=== PATIENT | male | born 1940 | race Caucasian/White ===

== ENCOUNTER 2017-06-24 14:45 | Inpatient (IN) | payer MEDICARE, OTHER ==
[~2017-06-24] VITALS: Ht 167.6 cm; Wt 98.2 kg
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
--- NOTE | ~2017-06-24 | PR ---
[place], [place] PROGRESS NOTE [id number] #: [id number] ROOM: 316 DOCTOR: NATALY LEHMAN BIRTHDATE: [birth year] DOS: 06/27/2017 SUMMARY OF VISIT: Good morning, the patient was assessed in the dining room where he was in a Elsa chair. He engaged in minimal conversation, but was very pleasant. No voiced complaints from nursing. No issues per patient. It should be noted that he seems more alert and engaging as his white count is coming down. MENTAL STATUS: He is alert and oriented to person. Maybe place, I do not think time. Some memory deficits noted. Affect is flat, blunted in the constricted range. No overt signs of auditory or visual hallucinations. No delusions or paranoia. Good sleep, good appetite. No behaviors. PLAN: The patient seems to be tolerating the addition of the Depakote. We will continue to give the Depakote and keep the medications as is. Again, his white count is coming down and he seems to be clearing, so this may be a contributing factor. As he continues to improve start pulling back on the Depakote if need be. Right now, he is getting good sleep from it and there are no behaviors, so we will continue with this for now and plan to discharge once stable enough. MATT LEHMAN CNP CM:PNTRANS [id number] NATALY LEHMAN 06/27/17 2003 interface
--- NOTE | ~2017-06-24 | PR ---
[place], [place] [facility]GRESS [id number] #: [id number] ROOM: 316 DOCTOR: NATALY LEHMAN BIRTHDATE: [birth year] DOS: 06/26/2017 SUMMARY OF VISIT: The patient was assessed in the dining room. He engaged in minimal conversation. Overall, stating that he is feeling fairly good. MENTAL STATUS: He is alert and oriented really to self only. He has clearly got some short term memory deficits. Affect is a little bit flat. No overt signs of auditory or visual hallucinations. No delusions, no paranoia. Stated that he slept good last night and the appetite is fairly good. PLAN: I am going to continue with the Celexa see how he does. Right now, the patient is started on Depakote. He seems to be tolerating this. I want to see how he does over the next 24 hours. He does have an elevated white count that is coming down, so there may be an infectious process going on. Let see how he acclimates over the next 24 hours to the medication changes that we have done and we can go from there. MATT LEHMAN CNP CM:YUNIOR [id number] [phone] NATALY LEHMAN 06/26/172251 interface
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
--- NOTE | ~2017-06-24 | CON ---
[place], [place] REPORT OF CONSULTATION [facility]: [id number] #: [id number] ROOM: 316 DOCTOR: MADYSON REAGAN ED.D (DIEGO) BIRTHDATE: [birth year] DOS: 06/30/2017 HISTORY OF PRESENT ILLNESS: The patient is a 76-year-old male who is presently a patient on the Senior Behavioral Health Unit at [facility]. He was brought to the hospital from [facility] [place], [place]. This patient's medical history is pertinent for atrial fibrillation, benign prostatic hypertrophy, hypertension, major depression, brief psychotic disorder and major neurocognitive disorder - Alzheimer's disease. His medications include Celexa, Depakote, Aricept and Namenda. This patient was awake, alert and oriented to person only. He was not oriented to place or time. He stated he is 44 or 45 years old and it is 1997 or 1998. He stated he was at [facility] in [place], [place]. His short and his long-term memory are markedly impaired. In my opinion, this patient is clearly not competent to make informed healthcare decisions. Apparently, his is undergoing brain surgery for some type of cancer and she is his durable power of manager inventory control for healthcare. There was some concern about this and a request was made for guardianship. He is clearly not competent, so I did complete guardianship paperwork and hopefully, his will be able to make decisions, but in the event if that does not occur, guardianship papers will be completed. DIAGNOSES: 1. Major neurocognitive disorder - Alzheimer's disease. 2. Major depressive disorder, recurrent. RECOMMENDATIONS: In my opinion, this patient is clearly not competent to make informed healthcare decisions. Thank you very much for this consult. MADYSON REAGAN ED.D CM:CONSTR:REPORT OF CONSULTATION 1153 06/30/17 1211 interface TEZ HAYES MD
[2017-06-24] MEDS ORDERED: Depakote Sprin125 MG PO (14:56)
[2017-06-24] MEDS ORDERED: NAMZARIC 28 MG1 EACH PO (14:57)
[2017-06-24] MEDS ORDERED: ASPIRIN CHEWABL81 M1 PO (14:57)
[2017-06-24] MEDS ORDERED: ATIVAN0.5 MG PO (14:57)
[2017-06-24] MEDS ORDERED: REMERON15 M2 PO (14:58)
[2017-06-24] MEDS ORDERED: SEROQUEL25 MG PO (14:58)
[2017-06-24] MEDS ORDERED: SENOKOT-S TABL1 EACH PO (14:59)
[2017-06-24] MEDS ORDERED: VITAMIN D350000 UNIT PO (15:02)
[2017-06-24] MEDS ORDERED: TRAMADOL HCL50 MG PO (15:03)
[2017-06-24] MEDS ORDERED: LOPRESSOR50 M1 PO (15:06)
[2017-06-24] MEDS ORDERED: DUONEB 3 MG/3 ML3 M1 INH (15:07)
--- NOTE | 2017-06-24 17:45 | NUR ---
TI FINCH a 76 year old M admitted via ambulance from the OTHER as a voluntary admission. Arrived on unit at 1745. ALLERGIES: NKA. Vital signs are: 98.9-105-18 143/74. VERBAL CONSENT GIVEN VIA TELEPHONE FOR ADMISSION PAPERWORK FROM PAIGE [facility]ILA. Admitted under the services of Dr. FREDDY ARGUETA,[facility]. A search was conducted and hazardous articles were removed. Client was oriented to the unit. VADIM FARIAS
[2017-06-24 18:12] VITALS: BP 143/74
--- NOTE | 2017-06-24 18:31 | NUR ---
MADE AWARE OF NEW CONSULT AND THAT MEDICATIONS WERE READY TO BE RECONCILED.
--- NOTE | 2017-06-24 19:01 | NUR ---
DR. BEY ON UNIT TO SEE PATIENT
[2017-06-24 20:28] VITALS: BP 155/68
--- NOTE | 2017-06-24 21:30 | NUR ---
CLIENT SITTING IN GERICHAIR AT THIS TIME WATHCHING TELEVISION. MEDICATION COMPLIANT. VOICES NO DISCOMFORT OR PAIN AT THIS TIME
--- NOTE | 2017-06-25 00:05 | NUR ---
RESPIRATORY THERAPY ON UNIT TO ADMINISTER BREATHING TREATMENT TO CLIENT
--- NOTE | 2017-06-25 03:46 | NUR ---
24 HR chart check completed.
[2017-06-25 06:28] LABS: BASO % 0.1 % (0.0-1.0); EOS % 0.1 % (1.0-4.0); HEMATOCRIT 43.6 % (42.0-52.0); HEMOGLOBIN 14.3 g/dl (14.0-18.0); LYMPH # 2.8 10*3/uL (1.3-4.4); LYMPH % 14.5 % (27.0-41.0); MEAN CELL VOLUME 94.4 fl (80.0-94.0); MEAN CORPUSCULAR HGB CONC 32.8 g/dl (33.0-37.0); MEAN PLATELET VOLUME 10.5 fl (9.6-12.3); MONO # 1.5 10*3/uL (0.1-1.0); MONO % 7.7 % (3.0-9.0); NEUT # 14.9 10*3/uL (2.3-7.9); NEUT % 77.1 % (47.0-73.0); PLATELET COUNT AUTOMATED 375 10*3/uL (130-400); RED BLOOD COUNT 4.62 10*6/uL (4.50-5.90); RED CELL DISTRI WIDTH 11.9 % (0-14.5); WHITE BLOOD COUNT 19.3 10*3/uL (4.8-10.8)
--- NOTE | 2017-06-25 06:44 | NUR ---
CLIENT SLEEPING GREATER THAN 7 HOUR5 THIS SHIFT
[2017-06-25 06:59] LABS: ALBUMIN 2.8 gm/dl (3.1-4.5); ALKALINE PHOSPHATASE 100 U/L (45-117); BUN 16 mg/dl (7-24); CHLORIDE 105 mmol/L (98-107); CHOLESTEROL 103 mg/dL (<200); CREATININE 0.62 mg/dL (0.70-1.30); HDL CHOLESTEROL 35 mg/dl (40-60); LDL CHOLESTEROL 57 mg/dL (9-159); POTASSIUM 3.6 mmol/L (3.5-5.1); SGOT/AST 16 IU/L (3-35); SGPT/ALT 20 U/L (12-78); SODIUM 140 mmol/L (136-145); TOTAL PROTEIN 6.9 gm/dL (6.4-8.2); TRIGLYCERIDES 53 mg/dl (<150); VALPROIC ACID (DEPAKENE) 49.6 ug/ml (50-100); VLDL CHOLESTEROL 11 mg/dL (6-40)
[2017-06-25 07:06] LABS: VITAMIN D, 25-HYDROXY 30.3 ng/mL (30-100)
[2017-06-25 07:50] VITALS: BP 119/68
--- NOTE | 2017-06-25 12:32 | NUR ---
PT was in attendence for RT Group/Games but was asleep in his chair
--- NOTE | 2017-06-25 13:28 | NUR ---
PHYSICAL THERAPY PAtient evaluated on 3, full evaluation to follow. Continue with PT as per plan of care with fall, unit three, dementia and alarm precautions. Return to [facility] as prior with PT prn to return to [facility]. PAtient is moderate coplexity via chart review, tests and evaluation: 35040. Thank you for this referral. Katy Barrett,PT
--- NOTE | 2017-06-25 14:10 | NUR ---
Occupational Therapy evaluation completed this date on 3 with full eval to follow. Precautions include 3N, fall precautions,personal alarm, dementia, moderate complexity level 19003. Recommend OT per POC and return to [facility]. Thank you for this referral. Jordyn Mora OTR/l
[2017-06-25 14:31] LABS: BILIRUBIN NEGATIVE (NEGATIVE); BLOOD TRACE-INTACT (NEGATIVE); CLARITY SL CLOUDY (CLEAR); COLOR YELLOW (YELLOW); GLUCOSE NEGATIVE (NEGATIVE); KETONE NEGATIVE (NEGATIVE); LEUKO ESTERASE NEGATIVE (NEGATIVE); NITRITE NEGATIVE (NEGATIVE); SPECIFIC GRAVITY 1.025 (1.005-1.030); UROBILINOGEN 0.2 E.U./dl (0.2-1.0)
[2017-06-25 14:44] LABS: BACTERIA TRACE; MUCOUS 3+
--- NOTE | 2017-06-25 15:05 | NUR ---
[place] is compliant with prescribed medications. He was noted to exhibit some agitation @ times during the morning and did grab staff when attempts were made to assist him with ADL's. Marked cognitive impairment is noted and he is unable to process information provided by staff. Oriented to person only. Dr. Dumont and Dr. Houser in to see him this morning and request was made for staff to straight cath him to obtain a urine for testing as he has been incontinent since admission to the unit. Specimen obtained and sent to lab. He was medicated with ativan 1 mg po @ 1241 for irritability with agitation. Ativan is effective in calming him. Requires maximal assistance and direction with completing ADL's. Appetite is good. Refer to [facility] flowsheet for specific monitoring.
--- NOTE | 2017-06-25 15:41 | NUR ---
PT did not attend RT Group/Painting this afternoon. PT was in his room sleeping
--- NOTE | 2017-06-25 17:36 | NUR ---
treatment team was held this morning withthe following present: Dr. Jimenez, medical student, [employer], RN, SWs, and AT. Dr. jimenez said that Pt may go medial. From . [facility] pending discharge for next week if does not go medical
--- NOTE | 2017-06-26 02:32 | NUR ---
24 HR chart check completed.
[2017-06-26 04:46] LABS: BASO % 0.1 % (0.0-1.0); EOS # 0.1 10*3/uL (0.0-0.4); EOS % 0.3 % (1.0-4.0); HEMATOCRIT 42.1 % (42.0-52.0); HEMOGLOBIN 13.8 g/dl (14.0-18.0); LYMPH # 2.9 10*3/uL (1.3-4.4); LYMPH % 19.1 % (27.0-41.0); MEAN CELL VOLUME 94.8 fl (80.0-94.0); MEAN CORPUSCULAR HGB 31.1 pg (27.0-31.0); MEAN CORPUSCULAR HGB CONC 32.8 g/dl (33.0-37.0); MEAN PLATELET VOLUME 10.4 fl (9.6-12.3); MONO # 1.3 10*3/uL (0.1-1.0); MONO % 8.7 % (3.0-9.0); NEUT # 10.9 10*3/uL (2.3-7.9); NEUT % 71.1 % (47.0-73.0); PLATELET COUNT AUTOMATED 370 10*3/uL (130-400); RED BLOOD COUNT 4.44 10*6/uL (4.50-5.90); RED CELL DISTRI WIDTH 11.9 % (0-14.5); WHITE BLOOD COUNT 15.4 10*3/uL (4.8-10.8)
[2017-06-26 05:04] LABS: ALBUMIN 2.8 gm/dl (3.1-4.5); ALKALINE PHOSPHATASE 93 U/L (45-117); BUN 17 mg/dl (7-24); CHLORIDE 106 mmol/L (98-107); POTASSIUM 3.8 mmol/L (3.5-5.1); SGOT/AST 12 IU/L (3-35); SGPT/ALT 17 U/L (12-78); SODIUM 142 mmol/L (136-145); TOTAL PROTEIN 6.8 gm/dL (6.4-8.2)
--- NOTE | 2017-06-26 05:15 | NUR ---
B: AGITATION/ ANXIETY. PT RESTLESS, DIFFICULT TO REDIRECT AT TIMES I: 1-1, DISTRACTION, REDIRECTION R: PT RESTING QUIETLY IN BED COOPERATIVE WITH HS CARE WITH COAXING P: CONTINUE TO MONITOR FOR MOOD LABILITY AND AGITATION REDIRECT NECESSARY AMINISTER MEDS ORDERED
--- NOTE | 2017-06-26 05:29 | NUR ---
PT MED COMPLIANT WITH OUT DIFFICULTY, COOPERATIVE WITH HS CARE. INCONTINENT OF URINE, CONTINENT OF LARGE FORMED BM. SLEPT THROUGHOUT NIGHT WITH NO INTURRUPTIONS >8 HOURS. NO S/S OF AGGRESSION OR AGITATION THIS SHIFT. SEE FLOW SHEET FOR SPECIFIC MONITORING.
[2017-06-26 07:34] VITALS: BP 120/81
--- NOTE | 2017-06-26 08:06 | NUR ---
PHYSICAL THERAPY Mr Harden seen this AM 1:1 for her physical therapy session. Pt having dementia and body alarm precautions. Transfer supine/sit MOD/MAX A X 1, sitting balance MIN A X 1, X 5 min. Sit/stand with verbal cueing and MOD A X 1. Followed by gait with wheeled walker 90' X 2, with one sitting rest and MOD A X 1, and much verbal cueing for gait, walker, turn and balance safety. Pt up in the day room after this and would push himself away from the table 3-4 times, and set his body alarm off, aid present to help, tray up on his gerichair treatment time 25 min. JAKOB ELIAS [employer]ER MACHINE.
--- NOTE | 2017-06-26 11:15 | NUR ---
BA MENGNP ON UNIT TO ASSESS PT.
--- NOTE | 2017-06-26 11:24 | NUR ---
PT was in attendence during RT Group/crafts. PT did not participate. AT put a program on for PT to watch
--- NOTE | 2017-06-26 15:33 | NUR ---
PT did not attend RT Group/Remininscing this afternoon. PT was in his room asleep. AT attempted to encourage PT to attend group. Woke PT up to do so but PT would not answer and went back to sleep.
--- NOTE | 2017-06-26 15:44 | NUR ---
PT unable to participate in assessment due to increased confusion
--- NOTE | 2017-06-26 17:44 | NUR ---
PT ALERT TO PERSON ONLY. PT MED COMPLAINT WITHOUT DIFFICUTLY.NO HALLUCIANTIONS OR DELUSIONS NOTED. NO HOMICIDAL/SUICIDAL THOUGHTS VOICED. PT HAD 1 INCINDENT OF GRABBING STAFF, PT REDIRECTED WITHOUT DIFFICULTY, ADVISED PT THAT THIS IS NOT ACCEPTABLE BEHAVIOR. PT IS RESTLESS AT TIMES, PT PLACED IN BED TO REST. PT INCONTINENT OF BOWEL AND BLADDER, CARE PROVIDED NEEDED. PLAN IS TO ENCOURAGE POSITIVE BEHAVIORS, MONITOR PT ON Q15 MIN SAFTEY CHECKS.
[2017-06-26 19:59] VITALS: BP 158/78
[2017-06-26 20:35] VITALS: BP 158/78
--- NOTE | 2017-06-27 00:32 | NUR ---
PATIENT ALERT TO PERSON ONLY. MEDICATION COMPLIANT WITHOUT DIFFICULTY. NO HALLUCINATIONS OR DELUSIONS NOTED. NO SUICIDAL/HOMICIDAL THOUGHTS. PATIENT HAD 1 INCINDENT OF GRABBING STAFF, PT REDIRECTED WITHOUT DIFFICULTY. NO PHYSICAL COMPLAINTS VOICED. PATIENT PLACED IN BED TO REST AT 2215. CARE PROVIDED NEEDED. PATIENT CURRENTLY IN BED WITH EYES CLOSED. RESPIRATIONS EASY AND REGULAR. NO SIGNS OR SYMPTOMS OF DISTRESS NOTED. REFER TO [facility] FLOWSHEET FOR SPECIFIC MONITORING.
--- NOTE | 2017-06-27 04:09 | NUR ---
24 HOUR CHART CHECK COMPLETED.
--- NOTE | 2017-06-27 06:15 | NUR ---
PATIENT OBSERVED ON Q 15 MIN CHECKS TO HAVE SLEPT QUIETLY THROUGHOUT THE NIGHT WITH NO AWAKENINGS OR SIGNS AND SYMPTOMS OF DISTRESS NOTED.
[2017-06-27 07:43] VITALS: BP 121/74
[2017-06-27 07:50] LABS: BASO % 0.2 % (0.0-1.0); EOS # 0.1 10*3/uL (0.0-0.4); EOS % 0.5 % (1.0-4.0); HEMATOCRIT 42.6 % (42.0-52.0); HEMOGLOBIN 14.3 g/dl (14.0-18.0); LYMPH # 2.9 10*3/uL (1.3-4.4); LYMPH % 23.7 % (27.0-41.0); MEAN CELL VOLUME 94.2 fl (80.0-94.0); MEAN CORPUSCULAR HGB 31.6 pg (27.0-31.0); MEAN CORPUSCULAR HGB CONC 33.6 g/dl (33.0-37.0); MEAN PLATELET VOLUME 10.5 fl (9.6-12.3); MONO # 0.9 10*3/uL (0.1-1.0); MONO % 6.9 % (3.0-9.0); NEUT # 8.4 10*3/uL (2.3-7.9); NEUT % 67.7 % (47.0-73.0); PLATELET COUNT AUTOMATED 388 10*3/uL (130-400); RED BLOOD COUNT 4.52 10*6/uL (4.50-5.90); RED CELL DISTRI WIDTH 11.8 % (0-14.5); WHITE BLOOD COUNT 12.4 10*3/uL (4.8-10.8)
[2017-06-27 08:25] LABS: ALBUMIN 2.7 gm/dl (3.1-4.5); ALKALINE PHOSPHATASE 105 U/L (45-117); BUN 17 mg/dl (7-24); CHLORIDE 107 mmol/L (98-107); CREATININE 0.53 mg/dL (0.70-1.30); POTASSIUM 3.6 mmol/L (3.5-5.1); SGOT/AST 12 IU/L (3-35); SGPT/ALT 16 U/L (12-78); SODIUM 141 mmol/L (136-145); TOTAL PROTEIN 6.9 gm/dL (6.4-8.2)
--- NOTE | 2017-06-27 14:38 | NUR ---
PT RESTLESS, UNDRESSING IN THE DINING AREA, WHEN APPROACHED BY STAFF TO BE REDRESSED, PT YELLING OUT, SWINGING AT STAFF, ATTEMPTING TO GRAB. PT REDRESSED, TOILETED, GIVEN FLUIDS, RECLINED BACK IN CHAIR WITH BLANKET, ALL INTERVENTIONS INEFFECTIVE. PT CONTINUING TO GRAB AND SWING AT STAFF. PT MEDICATED WITH ATIVAN 1 MG PO PRN. WILL CONTINUE TO MONITOR BEHAVIORS.
--- NOTE | 2017-06-27 15:17 | NUR ---
PT ALERT TO PERSON ONLY. PT MED COMPLIANT WITHOUT DIFFICULTY. PT ANGRY/IRRITABLE AT TIMES. PT COMBATIVE WITH STAFF, DURING CARE AND WITH REDIRECTION, ATTEMPTING TO HIT AND GRAB. PT RESTLESS AT TIMES. NO HALLUCINATIONS OR DELUSIONS NOTED. NO HOMICIDAL/SUICIDAL THOUGHTS NOTED. PT INCONTINENT OF BOWEL AND BLADDER, CARE PROVIDED NEEDED. PLAN IS CONTINUE TO MONITOR PT BEHAVIORS ON Q15 MIN SAFTEY CHECKS, ENCOURAGE PT TO UTILIZE POSITIVE COPING SKILLS.
--- NOTE | 2017-06-27 15:45 | NUR ---
ATIVAN EFFECTIVE, PT RESTING QUIETLY IN GERICHAIR IN DINING ROOM.
[2017-06-27 19:48] VITALS: BP 140/90
--- NOTE | 2017-06-28 04:16 | NUR ---
PT ALERT TO NAME ONLY. MOOD IMPROVED FROM PREVIOUS SHIFT'S STATE OF LABILITY. MEDICATION COMPLIANT WITHOUT DIFFICULTY. NO REPORTS OF SI/HI, DELUSIONAL THOUGHT PROCESSES, OR HALLUCINATIONS. NO AGITATION/AGGRESSION NOTED. NO EPISODES OF UNDRESSING HIMSELF OCCURRED. PT SLEPT >8HRS IN HIS OWN BED WITH NO AWAKENINGS. REFER TO FLOWSHEET FOR ADDITIONAL INFO.
[2017-06-28 07:41] VITALS: BP 151/77
--- NOTE | 2017-06-28 09:15 | NUR ---
PT /POA CALLED IN INQUIRING ABOUT PT DISCHARGE DATE. ADVISED POA THAT NO CURRENT DATE HAS BEEN SET. PER POA, SHE WILL BE GOING INTO THE HOSPITAL ON JUL 06 OR THE FOR BRAIN SURGERY, PT'S ALTERNATE POA IN OCT. PER POA, DAUGHTER HAS FINANCIAL POA AND THE ATTORNAY HAS DRAWN UP A PAPER STATING THAT THE DAUGHTER, CAN MAKE DECISIONS IF NEEDED WHILE THE POA IS IN THE HOSPITAL. ADVISED POA TO CALL ON TO ENQUIRE ABOUT A POSSIBLE D/C DATE AND IF NEEDED SHE WILL HAVE TO BRING IN A COPY OF THE PAPERWORK FOR OUR RECORDS.
--- NOTE | 2017-06-28 11:42 | NUR ---
MIRNA, UPDATED ON AMMONIA LEVEL. NO FURTHER ORDERS RECEIVED.
--- NOTE | 2017-06-28 13:45 | NUR ---
NOTIFIED RECREATION INSTRUCTOR OF SITUATION WITH WITH POA, COMPETANCY EVAL ORDERED FOR TUES FOR POSSIBLE GUARDIANSHIP. MESSAGE LEFT FOR POA TO RETURN CALL REGARDING MATTER.
--- NOTE | 2017-06-28 13:53 | NUR ---
NOTIFIFED OF COMPETANCY EVAL NEEDED PER . HE WILL BE IN ON . NO FURTHER ORDERS.
--- NOTE | 2017-06-28 14:32 | NUR ---
PT ALERT TO PERSON AND SOMEWHAT PLACE, PT KNOWS HE'S IN THE HOSPITAL BUT UNSURE OF WHERE. PT MOOD IS IRRITABLE AT TIMES, PT GRABS AT STAFF AT TIMES. PT REDIRECTED WITH MINIMAL DIFFICULTY. NO HALLUCINATIONS OR DELUSIONS NOTED. NO HOMICIDAL/SUICIDAL THOUGHTS NOTED. PT CONTINENT OF BOWEL AND BLADDER WITH EOPISODES OF INCONTINENCE NOTED, CARE PROVIDED NEEDED. PLAN IS TO CONTINUE TO MONITOR PT ON Q15 MIN SAFETY CHECKS, ENCOURAGE PT TO UTILIZE POSITIVE COPING SKILLS.
--- NOTE | 2017-06-28 15:55 | NUR ---
RETURNED CALL AND UPDATED ON ORDER FOR COMPETANCY EVAL. ASKED THAT I SPEAK WITH DAUGHTER REGARDING THIS MATTER AND THEY WOULD TALK ABOUT IT. SPOKE WITH DAUGHTER, ADVISED DTR OF SITUATION, PER DTR PROCEED WITH COMPETANCY EVAL AND THEY WILL MAKE A DECISION IF THEY WILL PROCEED WITH GUARDIANSHIP.
--- NOTE | 2017-06-28 16:41 | NUR ---
ON UNIT, NOTIFIED OF PTS LABS. NO FURTHER ORDERS AT THIS TIME.
[2017-06-28 19:39] VITALS: BP 133/80
--- NOTE | 2017-06-28 21:14 | NUR ---
PT ALERT TO NAME ONLY. MEDICATION COMPLIANT WITHOUT DIFFICULTY. NO EPISODES OF MOOD LABILITY NOTED AT THIS TIME. PT UNABLE TO FULLY COMPREHEND QUESTIONING REGARDING THE PRESENCE OF SI/HI, DELUSIONAL THOUGHT PROCESSES, OR HALLUCINATIONS. PT NOT WITNESSED EXPERIENCING ANY OF THE ABOVE. CONTINUE TO ATTEMPT REORIENTATION/REDIRECTION WHEN NECESSARY. REFER TO FLOWSHEET FOR ADDITIONAL INFO
--- NOTE | 2017-06-28 23:28 | NUR ---
24HR CHART CHECKS COMPLETE
--- NOTE | 2017-06-29 06:26 | NUR ---
PT SLEPT >8HRS WITH ONE INTERRUPTION TO USE THE RESTROOM.
[2017-06-29 08:20] VITALS: BP 115/69
--- NOTE | 2017-06-29 11:28 | NUR ---
Pt in gerichair prior to Tx. Pt transferred sit to stand with min a x 1 followed by ambulation without device MAINTENANCE MGR 180 ft x 1 and 100 ft x 1 with min a x 1 and vc to increase step length. Pt refused ex this date stating" I i'm too tired." Pt requires 3 min rest period between ambulation bouts. Tolerated Tx without incident. Pt received 17 min / Tx with therapist this date. Pt returned to locked gerichair and body alarm replaced after Tx. cont with POC to achieve established PT goals. DMcCoy, HEATER ROOM HELPER
--- NOTE | 2017-06-29 12:38 | NUR ---
PT was in attendence during RT Group/positive traits but did not participate. PT was encouraged a few times but PT would not answer. PT closed his eyes then and went to sleep while goup was in session
--- NOTE | 2017-06-29 12:39 | NUR ---
24 HR chart check completed.
--- NOTE | 2017-06-29 15:52 | NUR ---
PT did attend RT Group/Crafts with positivity. PT also participated with 1:1 assisstance. PT stated the colors and things he wanted to use to the Milieu who was helping him. PT is withdrawn and quiet but spoke if spoken to. there were no issues during group
[2017-06-29 19:54] VITALS: BP 104/70
[2017-06-29 20:22] VITALS: BP 146/66
--- NOTE | 2017-06-29 21:13 | NUR ---
24 HR chart check completed.
--- NOTE | 2017-06-30 06:06 | NUR ---
PT HAS BEEN OBSERVED ON Q 15 MIN CHECKS & HAS SLEPT QUIETLY THROUGHOUT THE SHIFT PAST 2200.
--- NOTE | 2017-06-30 08:20 | NUR ---
TREATMENT TEAM WAS HELD WITHTHE NEIL MEMBERS PRESENT: DR. KELLY, RN, AT,SW, DIRECTOR, AND MEDICAL STUDENT. PENDING DISCHARGE FOR Thursday. RETURN TO [facility].
--- NOTE | 2017-06-30 08:30 | NUR ---
RAQUEL GRACIA LINEN MANAGER MADE AWARE OF PT LABS THIS AM.
[2017-06-30 09:05] VITALS: BP 116/75
--- NOTE | 2017-06-30 09:59 | NUR ---
ON UNIT TO ASSESS PATIENT. STATES WILL FILL OUT GUARDIANSHIP PAPERWORK.
--- NOTE | 2017-06-30 10:02 | NUR ---
PHYSICAL THERAPY Patient presented to therapy sitting in melecio-chair in activity room. Patient had no complaints. Patient agreed to therapy treatment. Patient performed ther ex in seated position 1:1 with this TIMBER HARVESTER OPERATOR for 10 minutes. Patient performed Sit to Stands 2 x 5 with CGA X 1. Patient performed gait with R/W 20 ft. x 1 with CGA X 1 with Maximum verbal cues for turning and staying close to walker. Patient was left in melecio-chair with body alarm attached , leg rest raised and sitting in activity room with other patients. Patient tolerated treatment well. Cristiano Gomez --TIMBER HARVESTER OPERATOR
--- NOTE | 2017-06-30 13:47 | NUR ---
[place] Hole/Puzzle The object of this game is to toss beanbags into a hole and putting a puzzle together as a group. PT attended and participated in this group. Gae of mitali [email or web address] was ajusted to fit patients need due to being in a chair. This helped the patient with socialization and focusing on a task. Patient did well with this game getting several bags into a hole. Patient refused to play after 2 rounds. Everyone in group encouraged him to continue but patient refused. Patient then went to sleep Patient also recieved a prize for participating
--- NOTE | 2017-06-30 15:48 | NUR ---
Memory Game/Coloring object is to place pieces on the table and for each person to take turns trying to make a match. PT was in attendence for this group but was asleep. Patient woke up during group and patient joined group. Patient stated he wanted to color and this was a good activity for patient to help focus and sitting with other patients he could still socialize. Patient put crayon to paper but when you encouraged patient to color he became agressive pounding crayon on picture and repeating color color. Staff then removed picture and crayon from patient and he became calmer
--- NOTE | 2017-06-30 17:39 | NUR ---
PATIENT IS ALERT AND ORIENTED TO SELF ONLY. LIMITED VERBALIZATION WITH STAFF AND PEERS PER USUAL. MOOD IS STABLE. NO AGITATION, IRRITABILITY, COMBATIVENESS, SEXUALLLY INAPPROPRIATE, OR ANY OTHER BEHAVIORS NOTED. CALM AND COOPERATIVE THIS SHIFT. WALKED WITH PT THIS SHIFT. PLEASANTLY CONFUSED DURING ONE ON ONE INTERACTIONS. NO HALLUCINATIONS OR DELUSIONS NOTED. APPEITE IS FAIR THIS SHIFT. TAKING FLUIDS WELL. MEDICATION COMPLIANT WITHOUT DIFFICULTY. NAPS INTERMITTENTLY THROUGHOUT THE SHIFT, LESS THAN 3 HOURS TOTAL THIS SHIFT. 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 FALL PRECAUTIONS MAINTINED, WILL MAINTAIN PER POLICY.
--- NOTE | 2017-06-30 18:12 | NUR ---
SHIFT CHART CHECK COMPLETED.
[2017-06-30 20:06] VITALS: BP 101/80
--- NOTE | 2017-06-30 20:23 | NUR ---
SW RECEIVED UPDATED PASRR BACK . COPY ON CHART.
--- NOTE | 2017-06-30 21:38 | NUR ---
LOPRESSOR 50 MG HELD A NURSING MEASURE. B/P 101/80, PULSE 80
--- NOTE | 2017-06-30 21:40 | NUR ---
24 HR chart check completed.
--- NOTE | 2017-07-01 05:25 | NUR ---
PT HAS BEEN OBSERVED ON Q 15 MIN CHECKS & HAS SLEPT QUIETLY THROUGHOUT THE SHIFT PAST 2229. PRIOR TO GOING TO BED, PT WAS INCONTINENT OF A LARGE BM WHILE BEING ASSISTED ON THE TOILET.
[2017-07-01 08:19] VITALS: BP 119/66
--- NOTE | 2017-07-01 09:38 | NUR ---
PHYSICAL THERAPY Chino seen this AM 1:1 for his therapy session. Pt was up in his gerichair in the day room. Transfer sit/stand CG X 1. Followed by gait 200' X 1, and CGA X 1, with verbal cueing for gait safety, one sitting rest. Followed by another gait 90' X 1, CGA X 1, no LOB, stop/start gait, and standing balance. Chino back up in his gerichair tray up and breakfast coming, treatment time 24 min. JAKOB ELIAS LOGGER.
--- NOTE | 2017-07-01 11:38 | NUR ---
MAYRA spoke with MAYRA Garcia at [facility] informing of pending discharge for Jul.02. Radha prefers that Pt comes in the morning. MAYRA asked if there was an ambulance preference. Radha believes it is [facility] but will check and call SW back. Radha was thinking an ambulette will be ok. MAYRA will check with Nursing to make sure. MAYRA will try to get transportation in the morning.
--- NOTE | 2017-07-01 12:01 | NUR ---
Elizabeth recevide VM from [facility] confirming that [facility] is correct company facility uses. Prefers Pt returns in the morning. ELIZABETH gave Parking Enforcer inforamtio to schedule trransportation.
--- NOTE | 2017-07-01 13:06 | NUR ---
Alba/Jamie/Think Fast Patient did attend group as well as participated today. This group brings the patient into socialization with others as well as focusing. Patient did need 1:1 during group but would attempt to read a question or when prompted for an an answer(given a choice) patient participated. Patient did become irritated after way short time of playing the game and had to be redirected a few times
--- NOTE | 2017-07-01 14:01 | NUR ---
First Aid Trainer Note: Transportation scheduled with Amena Hernandez for 07/02/17 at 11:00am to go to [facility].
--- NOTE | 2017-07-01 14:55 | NUR ---
Painting/Positive Traits Patient did attend group as well as participate. When asked if patient would like to join patient stated yes. Patient did very well with focusing on the objet he was painting. Encouraged patient to talk about a positive trait but paint did not. This group helped this patient with socialization and focusing on task
--- NOTE | 2017-07-01 17:13 | NUR ---
HERBOLOGIST: UPDATED PATIENT INFORMATION WAS FAXED AND CONFIRMED TO [facility] AT 1702.
--- NOTE | 2017-07-01 17:45 | NUR ---
Chino is compliant with prescribed medications with encouragement from staff. He has not exhibited any agitation with staff, physical or verbal. Due to cognitive impairment he is unable to identify appropriate coping strategies to deal with angry feelings. Chino requires maximal assistance with ADL's ongoing. Fall precautions continue and will be maintained throughout hospitalization. Will continue to monitor compliance, behavior and provide a safe environment throughout hospitalization. Refer to [facility] flowsheet for specific monitoring.
--- NOTE | 2017-07-01 19:24 | NUR ---
MAYRA INFORMED ROB THAT PT WOULD BE RETURNING TO [facility] ON Thursday WITH ALEXWY[facility]OR[facility] PICKING UP PT AT 11AM. REQUESTING COPY OF DR. REAGAN'S ASSESSMENT FOR GUARDIANSHIP.
[2017-07-01 20:03] VITALS: BP 135/92
--- NOTE | 2017-07-02 03:40 | NUR ---
24 HR chart check completed.
--- NOTE | 2017-07-02 05:39 | NUR ---
PT PLESANT AND COOPERATIVE WITH ALL ASPECTS OF CARE, NO AGITATION OR AGRESSION. PT RESTLESS THROUGOUT THE NIGHT SLEEPING AT 20 MINUTES INTERVALS. TOTAL OF 3 HOURS. MEDICATION COMPLIANT CONSUMED HS SNACK, IN CHAIR WATCHING TV AND INTERACTING WITH STAFF.
--- NOTE | 2017-07-02 06:39 | NUR ---
LATE ENTRY: SPOKE WITH NIURKA AT [facility]. STATES THIS PT HAS A MEDICAID POLICY THAT REQUIRES NO PRECERT.
[2017-07-02 07:45] VITALS: BP 117/75
[2017-07-02] MEDS ORDERED: MEMANTINE HCL10 MG PO (08:40)
[2017-07-02] MEDS ORDERED: CITALOPRAM HYDR20 MG PO (08:40)
[2017-07-02] MEDS ORDERED: DIVALPROEX SOD125 M1 PO (08:40)
[2017-07-02] MEDS ORDERED: Vitamin D PO (08:40)
[2017-07-02] MEDS ORDERED: ARICEPT10 M1 PO (08:40)
--- NOTE | 2017-07-02 08:56 | NUR ---
PHYSICAL THERAPY Pt seen this AM 1:1 for his therapy session, and was up in ther day room in his gerichair. With verbal cueing transfer sit/stand with MOD A X 1, standing balance MIN A X 1. Followed by gait 200' X 1, with wheeled walker this time and MOD A X 1, with cueing for gait, walker safety sitting rest. Followed by another gait 150' X 1, cueing for safety and Pt's turns. Pt back in his gerichair for breakfast, treatment time 25 min. JAKOB ELIAS OCEAN FISHING GUIDE.
--- NOTE | 2017-07-02 11:19 | NUR ---
PATIENT SEEN 1:1 THIS DATE OT 20 MIN. PATIENT IDENTIFIED BY WRIST BAND. PATIENT COMPLETED GROOMING SEATED MAXA WITH SIMPLE ONE STEP COMMANDS REQUIRED TO BRUSH DENTURES IN MOUTH (PATIENT DECLINED REMOVING DENTURES) COMBING HAIR AND WASHING FACE. PATIEN REQUIRED INCREASE TIME TO COMPLETE. WES ULLOA
--- NOTE | 2017-07-02 11:33 | NUR ---
Chino is compliant with medications with encouragment. No agitation or physical aggression has been noted. He is confused but does answer questions asked by staff with one or two words appropriately. Requires much direction with completion of tasks as well as some assistance. Mood is depressed. Delayed responses are also noted and due to cognitive impairment it is difficult for Chino to process information. Appetite poor for breakfast today. Energy level appropriate to age and condition. Refer to [facility] flowsheet for more specific monitoring. Fall precautions continue and have been maintained. Orders received to discharge Chino today. He will be returning to [facility]. Nurse to nurse report provided to Yani @ this time.
--- NOTE | 2017-07-02 11:57 | NUR ---
Chino did leave this facility on this date @ approximately 1150 discharged. He is accompanied by ambulette staff and his destination is [place]. Prior to his departure all personal items were returned. Refer to disposition for more specific information.
--- NOTE | 2017-07-02 12:46 | NUR ---
Discharge papers were copied and sent with papers to [facility] and a second copy will be sent to [facility] for signature. Pt discharged back to [facility] [place].
--- NOTE | 2017-07-03 08:24 | NUR ---
PHYSICAL THERAPY CO-SIGN I approve of the Phyical Therapy notes written above. BOB RICHARD PT
--- NOTE | 2017-07-03 13:42 | NUR ---
OCCUPATIONAL THERAPY CO-SIGN I approve of the Occupational Therapy notes written above. HELENA ARMSTRONG OTR/El
== END 2017-07-02 11:50 | disposition other institution (70) | DRG 884 ==
LOC: 3N 14:45
PROVIDERS: Internal Medicine Hospice and Palliative Medicine; Registered Nurse; ADMIT Psychiatry & Neurology Psychiatry
DX: F01.51 Vascular dementia, unspecified severity, with behavioral disturbance (principal); E44.0 Moderate protein-calorie malnutrition; F33.1 Major depressive disorder, recurrent, moderate; G30.9 Alzheimer's disease, unspecified; I48.0 Paroxysmal atrial fibrillation; F02.81 Dementia in other diseases classified elsewhere, unspecified severity, with behavioral disturbance; I10 Essential (primary) hypertension; F23 Brief psychotic disorder; E78.5 Hyperlipidemia, unspecified; N40.0 Benign prostatic hyperplasia without lower urinary tract symptoms; F41.1 Generalized anxiety disorder; Z79.82 Long term (current) use of aspirin; Z79.899 Other long term (current) drug therapy; Z68.34 Body mass index [BMI] 34.0-34.9, adult